=== PATIENT | female | born 1990 | race Caucasian/White ===

== ENCOUNTER 2021-11-30 10:05 | Outpatient (CLI) | payer OTHER, SELFPAY | END 2021-11-30 10:06 | disposition home or self-care (01) | PROVIDERS: Visit Provider Obstetrics & Gynecology | DX: Z34.90 Encounter for supervision of normal pregnancy, unspecified, unspecified trimester (principal); Z3A.00 Weeks of gestation of pregnancy not specified | CPT/HCPCS: 36415; 84702 ==

== ENCOUNTER 2021-12-06 15:25 | Outpatient (CLI) | payer OTHER, SELFPAY | END 2021-12-06 15:26 | disposition home or self-care (01) | LOC: ANHLAB 15:28 | PROVIDERS: Visit Provider Obstetrics & Gynecology | DX: O20.0 Threatened abortion (principal); Z3A.00 Weeks of gestation of pregnancy not specified | CPT/HCPCS: 36415; 84702 ==

== ENCOUNTER 2021-12-10 04:35 | Day surgery (SDC) | payer OTHER, SELFPAY ==
--- NOTE | 2021-12-09 16:27 | PC.NURSE ---
Report to the Outpatient Waiting Room, entrance under the green pavilion located off [facility], at time __1330 on date _12/10/21 . OR Time: ____1530____. - You and your visitor will be asked a series of questions to screen for COVID 19 for your protection. - A mask is required within the hospital. Preoperative COVID Testing Requirements: No COVID Test needed if: (proof is required; if not received patient will have Rapid Test prior to entry) - Patient has received COVID Vaccine at least 14 days prior to procedure date or - Patient has positive COVID test result within last 90 days of surgery date. COVID Test needed if above criteria is not met If not COVID vaccinated a COVID test must be conducted within 72 hours of surgery and patient is asked to isolate self from time of testing until procedure. You will go to the [facility] for your COVID testing. The [facility] site is located at the corner of [address] [facility]. You will only be called if COVID results are positive and your surgeon may reschedule your elective surgery date. Patients may have clear liquids (water, carbonated beverages, clear teas, apple juice) until 3 hours prior to surgery with a maximum of 20 ounces. - No food from midnight until time of surgery - Infants may have breast milk until 4 hours before surgery, infant formula 6 hours prior to surgery. - Children will be allowed to drink immediately following surgery. If applicable, please bring a bottle or sippy cup to assist with drinking. Juice, water, soda, and popsicles are readily available. For infants on formula, please bring formula the day of surgery. Pacifiers are allowed. Take the following medications with a SIP of water the morning of surgery: NONE Medications to discontinue per physician NONE Date to take last dose NONE Please no make-up, nail pakistani, hairspray, perfume, deodorant, or body powder the day of surgery. No jewelry (including any body piercings) or valuables the day of surgery, leave them at home. Please take a shower or bath the night before, or the morning of, surgery with an antibacterial soap. Wear comfortable, loose fitting clothing. Children are encouraged to wear pajamas. - Jewelry must be removed prior to entering the operating room. Rings and piercings that are not removed may be cut off. - The hospital will not accept responsibility for valuables. - Please leave all valuables, including medications, at home the day of surgery. If you are going home after surgery, a licensed emergency detail driver must drive you home. - NO public transportation without another adult. - We recommend that an adult stay with you for 24 hours following discharge. - We also recommend that you do not drive, make important decision, drink alcoholic beverages, or take any drugs that were not prescribed by your health care provider for at least 24 hours after your discharge time. For Pediatric surgeries, we recommend two adults accompany the child home (only one inside the building at this time). One visitor will be allowed to accompany the patient into the hospital. Patients visitor will be instructed to remain with patient at all times or leave the building. We will allow the visitor to come back to the postoperative area when patient is ready. Follow any additional instructions given to you from your surgeon. Telephone instructions given to _PATIENT and asked if any additional questions and then verbalized understanding. Patient advised to call surgeon office or pre surgery nurse liaison [phone] if any additional questions.
[2021-12-09 16:38] VITALS: BMI 35.4
--- NOTE | 2021-12-10 06:42 | WPDHPUPDATE1 ---
History and Physical Update Update Date/Time: 12/10/21 06:42 History and Physical has been reviewed, including an updated exam of the patient. There are NO changes in the patient's condition. Risks, benefits, and alternatives have been discussed and questions answered. Patient agrees to proceed with procedure.
--- NOTE | 2021-12-10 06:47 | PM.IMHP ---
H&P: HPI History of Present Illness Date/Time: 12/10/21 06:47 suspected cervical preg admitted for d and c Chief Complaint: first trimester abnormal Review of Systems Review of Systems: All systems reviewed & are unremarkable except as noted in HPI and below [facility] Social History Social History Years smoked: 5 Tobacco type: e-cigarettes/vaping Alcohol intake: current Drinks per week: 2 Substance use: never Living arrangements: with family Spiritual care concerns: No Meds Home Medications and Allergies Home Medications Medication Instructions Recorded Confirmed Type hydrocodone-acetaminophen 1 tablet PO Q4H PRN #20 tablet 12/10/21 Rx Allergies Allergy/AdvReac Type Severity Reaction Status Date / Time No Known Allergies Allergy Verified 12/09/21 16:20 Exam Const: General: no acute distress Eyes: General: appearance normal, both eyes and all related structures Neck: Neck: supple and no JVD Thyroid: thyroid normal Resp: Effort & Inspection: normal respiratory effort Auscultation: clear to auscultation bilaterally Cardio: Rate: regular rate Rhythm: regular rhythm GI: Inspection: non-distended GI Palp: Yes Soft to palpation, No Tenderness to palpation present (GI) and No Guarding due to palpation present (GI) Auscultation: normal bowel sounds : General: Yes bladder normal to palpation External Female Exam: normal external appearance Speculum Exam - Vagina: normal vaginal discharge and No vaginal bleeding Speculum Exam - Cervix: nontender Bimanual exam- vagina & uterus: bladder normal to palpation and No Cervical tenderness present OB/external & speculum: No vaginal bleeding Skin: General skin exam: no rashes or lesions noted Extrem: General: normal to inspection and no edema Psych: Mental Status: mental status grossly normal Affect: normal affect Assessment and Plan Additional Plan impression: abnormal plan:d and c
[2021-12-10 13:48] VITALS: BMI 35.4
--- NOTE | 2021-12-10 14:07 | P.PNAN_ITS ---
Anes - Eval Pre Procedure Procedure: Operation Date: 12/10/21 15:30 Proposed Procedures p Suction Dilation and Curettage - Rodo Howard MD Date/Time: 12/10/21 14:07 Pre Op Diagnosis: cervical Patient Data Age: 31 Gender: F Height: 1.75 m Weight: 108.9 kg Allergies Allergy/AdvReac Type Severity Reaction Status Date / Time No Known Allergies Allergy Verified 12/10/21 13:47 Home Medications Medication Instructions Recorded Confirmed Type hydrocodone-acetaminophen 1 tablet PO Q4H PRN #20 tablet 12/10/21 Rx Patient hx anesthesia problems: none Family hx anesthesia problems: none Results Review: All pre-operative results and documents have been reviewed as part of the pre-operative evaluation. [facility] Past Medical History Medical History (Updated 12/10/21 @ 14:08 by Rodo Llanes MD) Anxiety Missed ab Obesity Social History Social History Years smoked: 5 Tobacco type: e-cigarettes/vaping Alcohol intake: current Drinks per week: 2 Substance use: never Living arrangements: with family Spiritual care concerns: No Exam Day of Procedure 12/10/21 14:07 Patient weight: obese
[2021-12-10] MEDS: ACETAMINOPHEN 500 MG TABLET 1000 MG PO (14:12)
[2021-12-10] MEDS: LACTATED RINGERS 1,000 ML 30 ML IV CONT (14:20)
[2021-12-10 14:32] LABS: Hematocrit 37.6 % (37.0-47.0); Hemoglobin 12.5 g/dL (12.0-15.0)
[2021-12-10 14:33] VITALS: BP 112/60; PULSE 83; RESP 16; TEMP 36.8; O2SAT 100
[2021-12-10] MEDS: METHOTREXATE SODIUM/PF 50 MG/2 ML VIAL 56 MG IM ×2 (15:15→15:20)
[2021-12-10 15:57] VITALS: BP 147/88; PULSE 88; RESP 16; O2SAT 98
--- NOTE | 2021-12-10 16:00 | P.OP_ITS ---
Procedure Note - Detailed Date of Procedure 12/10/21 Pre-op Diagnosis cervical Post-op Diagnosis Same Procedure Performed Suction dilatation and curettage Surgeon Rodo Howard MD Anesthesia MAC and Local Indications This is 31-year-old female with abnormally rising HCG levels and no evidence of adnexal no intrauterine . Ultrasound showed some tissue at the cervix which could be possibly associated with a cervical ectopic. Findings Uterus sounded to 9cm. Minimal amount of tissue was found in the uterus consistent with the ultrasound. Description of Procedure The patient was prepped and draped in the normal sterile fashion placed in the dorsal lithotomy position. Under excellent IV sedation weighted speculum placed in posterior fornix vagina. Anterior lip of the cervix grasped with a single- tooth tenaculum. 2.5cc of 1% xylocaine anesthesia placed at 2, 4, 8, 10:00 a.m. of the cervix. Uterus was retroverted and sounded to 9cm. Serial dilatation with fragmented dilators performed followed by passage of the 8. Suction curette. Very small amount of tissue and clot was removed consistent with the previous ultrasound. The instruments removed and all were accounted for. The patient did receive methotrexate in case this was a an ectopic in the adnexa or somewhere else in the abdomen. 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 The procedure was terminated blood loss was estimated at25cc all sponge, needle, instrument counts were correct. Estimated Blood Loss 25 Drains No Packing No Pathology Yes Complications No immediate complications Condition Stable Disposition PACU
[2021-12-10] MEDS: fentaNYL CITRATE INJ (*CRX) 100 MCG/2 ML VIAL 25 MCG IV PUSH (16:11)
[2021-12-10] MEDS: oxyCODONE HCL (*CRX) 5 MG TAB IR PO (16:11)
[2021-12-10 16:27] VITALS: BP 153/73; PULSE 72; RESP 16; O2SAT 100
[2021-12-10 16:45] VITALS: BP 139/71; PULSE 80; RESP 16; O2SAT 100
[2021-12-10] MEDS: RHO(D) IMMUNE GLOBULIN 300 MCG/2 ML SYRINGE IM (16:46)
== END 2021-12-10 17:15 | disposition home or self-care (01) ==
PROVIDERS: Visit Provider Obstetrics & Gynecology
PROC: (CPT 59820; principal; 2021-12-10 15:30)
DX: O00.80 Other ectopic pregnancy without intrauterine pregnancy (principal); F17.290 Nicotine dependence, other tobacco product, uncomplicated
CPT/HCPCS: 59820; 36415; 85014; 85018; 85461; 88305; 90384; A9270; J1100; J1885; J2250; J2405; J2704; J2790; J3010; J7120; J9260

== ENCOUNTER 2022-01-21 15:08 | Outpatient (RCR) | payer OTHER, SELFPAY ==
[2021-12-23 16:19] LABS: Beta HCG Quantitative 408.05 mIU/ML
[2022-01-03 15:33] LABS: Beta HCG Quantitative 42.62 mIU/ML
[2022-01-12 16:23] LABS: Beta HCG Quantitative 8.12 mIU/ML
[2022-01-21 16:17] LABS: Beta HCG Quantitative < 2.39 mIU/ML
== END 2022-03-13 23:59 | disposition home or self-care (01) ==
LOC: ANHLAB 15:08
PROVIDERS: Visit Provider Obstetrics & Gynecology
DX: O02.1 Missed abortion (principal); Z3A.00 Weeks of gestation of pregnancy not specified
CPT/HCPCS: 36415; 84702

== ENCOUNTER 2022-05-11 16:05 | Outpatient (CLI) | payer OTHER, SELFPAY ==
[2022-05-11 16:20] LABS: Hematocrit 39.1 % (37.0-47.0); Hemoglobin 12.9 g/dL (12.0-15.0)
== END 2022-05-11 16:06 | disposition home or self-care (01) ==
LOC: ANHLAB 16:08
PROVIDERS: Visit Provider Obstetrics & Gynecology
DX: E04.9 Nontoxic goiter, unspecified (principal)
CPT/HCPCS: 36415; 84443; 85014; 85018

== ENCOUNTER 2022-05-16 11:08 | Outpatient (CLI) | payer OTHER, SELFPAY ==
--- NOTE | ~2022-05-16 | XR_ITS ---
EXAMINATION: XR hysterosalpingogram DATE: 05/16/2022 12:17 INDICATION: Infertility. Prior ectopic . TECHNIQUE: Multiple fluoroscopic images were obtained during contrast infusion into the endometrial c anal of the uterus by the primary physician. Fluoroscopy exposure time was 0.3 minutes. 2 fluoroscopi c images were obtained. FINDINGS: The uterine cavity demonstrates normal morphology. The left fallopian tube is normal in caliber and patent with free intraperitoneal spillage on the right. There is abrupt cut off of contrast within t he left fallopian tube which minimally dilates at the site of obstruction with no left-sided intraper itoneal spillage. IMPRESSION: 1. Patent right and occluded left fallopian tubes. Reviewed, dictated and finalized at location A.
== END 2022-05-16 11:09 | disposition home or self-care (01) ==
PROVIDERS: Visit Provider Obstetrics & Gynecology
DX: N97.9 Female infertility, unspecified (principal)
CPT/HCPCS: 58340; 74740; Q9966

== ENCOUNTER 2022-06-10 14:32 | Outpatient (CLI) | payer OTHER, SELFPAY ==
[2022-06-10 15:15] LABS: Beta HCG Quantitative 220.86 mIU/ML
[2022-06-13 16:23] LABS: Progesterone 16.9 ng/mL (***)
== END 2022-06-10 14:33 | disposition home or self-care (01) ==
PROVIDERS: Visit Provider Obstetrics & Gynecology
DX: Z34.80 Encounter for supervision of other normal pregnancy, unspecified trimester (principal); Z3A.00 Weeks of gestation of pregnancy not specified
CPT/HCPCS: 36415; 84144; 84702

== ENCOUNTER 2022-06-13 13:11 | Outpatient (CLI) | payer OTHER, SELFPAY ==
[2022-06-13 13:53] LABS: Beta HCG Quantitative 758.79 mIU/ML
== END 2022-06-13 13:12 | disposition home or self-care (01) ==
PROVIDERS: Visit Provider Obstetrics & Gynecology
DX: O09.11 Supervision of pregnancy with history of ectopic pregnancy, first trimester (principal); Z3A.00 Weeks of gestation of pregnancy not specified
CPT/HCPCS: 36415; 84702

== ENCOUNTER 2023-02-07 15:52 | Outpatient (CLI) | payer OTHER, SELFPAY ==
[2023-02-07 16:37] VITALS: BP 150/85; PULSE 77
[2023-02-07 16:45] VITALS: BP 141/88; PULSE 79
[2023-02-07 16:45] LABS: Basophils Percent Auto 0.3 % (0.2-1.2); Eosinophils Absolute Auto 0.1 K/mm3 (0-0.3); Eosinophils Percent Auto 0.7 % (0-4.4); Hematocrit 34.6 % (37.0-47.0); Hemoglobin 11.8 g/dL (12.0-15.0); Immature Granulocyte Absolute 0.12 K/mm3 (0.00-0.031); Immature Granulocyte Percent A 0.9 % (0-0.5); Lymphocytes Absolute Auto 2.15 K/mm3 (0.9-3.2); Lymphocytes Percent Auto 16.9 % (18.3-44.2); Mean Corpuscular HGB Conc 34.1 g/dl (32-36); Mean Corpuscular Hemoglobin 30.5 pg (26-34); Mean Corpuscular Volume 89.4 fl (80-100); Mean Platelet Volume 10.9 fl (7.4-10.4); Monocytes Absolute Auto 0.6 K/mm3 (0.1-0.6); Monocytes Percent Auto 4.5 % (2.6-8.5); Neutrophils Absolute Auto 9.8 K/mm3 (1.3-6.7); Neutrophils Percent Auto 76.7 % (45.5-73.1); Platelet Count Result 340 k/mm3 (150-375); Red Blood Count 3.87 M/mm3 (4.2-5.4); Red Cell Distribution Width 13.1 % (11.5-14.5); White Blood Count 12.8 K/mm3 (4.5-10.0)
[2023-02-07 16:56] LABS: Alanine Aminotransferase 25 U/L (6-35); Albumin Level 3.5 g/dL (3.5-5.1); Alkaline Phosphatase 145 U/L (38-126); Anion Gap 6 mmol/L (8-16); Aspartate Amino Transferase 20 U/L (14-36); Bilirubin,Total 0.2 mg/dL (0.2-1.3); Blood Urea Nitrogen 8 mg/dL (7-17); Calcium 8.6 mg/dL (8.4-10.2); Carbon Dioxide 23 mmol/L (22-30); Chloride 105 mmol/L (98-107); Estimated Glomerular Filt Rate > 60; Glucose 85 mg/dL (65-110); Potassium 3.7 mmol/L (3.4-5.0); Sodium 134 mmol/L (137-145); Total Protein Urine Random 8 mg/dL; Ur Ttl Prot Creatinine Ratio 0.18 mg/mg (0-0.20); Uric Acid 3.7 mg/dL (2.5-7.5)
[2023-02-07 17:00] VITALS: BP 144/83; PULSE 76
[2023-02-07 17:16] VITALS: BP 150/77; PULSE 82
[2023-02-07 17:23] LABS: Appearance Urine Clear (Clear); Bacteria Urine None Seen /hpf; Bilirubin Urine Negative (Negative); Blood Urine Negative (Negative); Color Urine Yellow (Yellow); Glucose Urine UA Negative (Negative); Ketones Urine Negative (Negative); Leukocyte Esterase Ur 1+ LEU/UL (NEGATIVE); Need Manual Microscopic Reviewed; Nitrate Urine Negative (Negative); Non Pathogenic Casts 0-2; Protein Urine Negative (Negative); RBC Urine 0-2 /hpf (0-2); Specific Grav Ur 1.009 (1.001-1.035); Squamous Epithelial Cell Urine Occasional /hpf (Few); Urobilinogen Urine 0.2 mg/dL (<2.0); WBC Urine 0-5 /hpf (0-3); pH Urine 6.5 (5.0-9.0)
[2023-02-07 17:31] LABS: Add Urine Microscopic? YES
== END 2023-02-07 17:30 | disposition home or self-care (01) ==
LOC: ANHOBOP 16:01 → ANHOBPP 16:04
PROVIDERS: Visit Provider Obstetrics & Gynecology
DX: O13.9 Gestational [pregnancy-induced] hypertension without significant proteinuria, unspecified trimester (principal); Z3A.00 Weeks of gestation of pregnancy not specified
CPT/HCPCS: 36415; 59025; 80053; 81001; 82570; 84156; 84550; 85025; 87086; 99199

== ENCOUNTER 2023-02-14 05:04 | Inpatient (IN) | payer OTHER, SELFPAY ==
[2023-02-14] VITALS (165 sets, daily range): BP systolic 76–162; BP diastolic 31–101; PULSE 61–163; RESP 12–18; TEMP 36.3–37.3; O2SAT 80–100; BMI 37.3
--- NOTE | 2023-02-14 05:44 | LDADM ---
This patient, Erika Toure, was admitted to Labor/Delivery/Recovery 103 on 02/14/23 at 05:04. Plans for labor, pain management and were discussed with patient. Patient/family oriented to hospital policies and general routines including ID bracelet, bed and alarms, visiting hours, pain management, procedures, bathroom and other care routines, personal items, smoking policy, room service/diet and guest tray routines, security routines, and visiting hours. Patient/Family are encouraged to report perceived risks to care and to ask questions if they do not understand what they are told or what they should do. See OBIX for further documentation.
--- NOTE | 2023-02-14 06:07 | PM.IMHP ---
H&P: HPI History of Present Illness Date/Time: 02/14/23 06:07 Chief Complaint: hypertension at term Narrative: this is a 32-year-old 2 para 0 40 weeks gestation for induction of labor secondary to elevated blood pressures. Blood pressures been elevated the last couple visits. She she has otherwise had an unremarkable course was normal heart tones and negative group B strep PMFSH Past Medical History Medical History Anxiety Missed ab Obesity Social History Social History Years smoked: 5 Smoking status: Former smoker Tobacco type: e-cigarettes/vaping Alcohol intake: current Drinks per week: 2 Substance use: never Lack of Transportation: No Lack of Food: Never True Current Housing: I Have Housing Concerned About Future Housing: No Difficulty Paying Gas/Electric Bills: No Difficulty Paying for Meds: No Currently Unemployed: No Education: Master's Degree or Higher Difficulty w/ Childcare or Family Care: No Living arrangements: with family Spiritual care concerns: No Meds Home Medications and Allergies Home Medications Medication Instructions Recorded Confirmed Type cholecalciferol (vitamin D3) 125 125 mcg PO DAILY 01/17/23 History mcg (5,000 unit) tablet (Vitamin D3) magnesium 250 mg tablet 250 mg PO DAILY 01/17/23 History vit no.95-ferrous 1 tablet PO DAILY 01/17/23 History fumarate 28 mg-folic acid 800 mcg tablet () Allergies Allergy/AdvReac Type Severity Reaction Status Date / Time No Known Allergies Allergy Verified 12/10/21 13:47 Vital Signs Vital Signs - 24 hr 02/14/23 05:24 02/14/23 05:30 02/14/23 05:45 Pulse Rate 95 88 85 Blood Pressure 162/95 H 162/90 H 147/85 H Oxygen Delivery 02/14/23 06:00 02/14/23 05:43 Pulse Rate 81 Blood Pressure 138/85 Oxygen Delivery Room Air Exam Const: General: cooperative, healthy appearing and comfortable Nutritional Appearance: average body habitus Orientation/consciousness: oriented to person, oriented to place and oriented to time HENMT: Head: normal to inspection Resp: Effort & Inspection: normal respiratory effort Cardio: Rate: regular rate Rhythm: regular rhythm Heart sounds: S1 normal heart sound present and S2 normal heart sound present GI: Inspection: normal to inspection ( gravid soft uterus) : External Female Exam: normal external appearance Speculum Exam - Vagina: normal appearance of the vagina Speculum Exam - Cervix: normal appearance of the cervix ( cervix . Attempted arom. FHTs were reassuring) Assessment and Plan Assessment and plan (1) Term : Code(s): Z34.90 - Encounter for supervision of normal , unspecified, unspecified trimester Status: Acute (2) Gestational hypertension: Code(s): O13.9 - Gestational [-induced] hypertension without significant proteinuria, unspecified trimester Status: Acute Plan medical induction of labor. Spontaneous vaginal delivery expected. She is an epidural candidate. PIH labs were drawn
[2023-02-14 06:09] LABS: Basophils Absolute Auto 0.1 K/mm3 (0.0-0.1); Basophils Percent Auto 0.3 % (0.2-1.2); Eosinophils Absolute Auto 0.1 K/mm3 (0-0.3); Eosinophils Percent Auto 0.7 % (0-4.4); Hemoglobin 12.1 g/dL (12.0-15.0); Immature Granulocyte Percent A 0.7 % (0-0.5); Lymphocytes Percent Auto 15.9 % (18.3-44.2); Mean Corpuscular HGB Conc 33.6 g/dl (32-36); Mean Corpuscular Hemoglobin 29.4 pg (26-34); Mean Corpuscular Volume 87.6 fl (80-100); Mean Platelet Volume 11.4 fl (7.4-10.4); Monocytes Absolute Auto 0.7 K/mm3 (0.1-0.6); Monocytes Percent Auto 4.6 % (2.6-8.5); Neutrophils Absolute Auto 11.7 K/mm3 (1.3-6.7); Neutrophils Percent Auto 77.8 % (45.5-73.1); Platelet Count Result 361 k/mm3 (150-375); Red Blood Count 4.11 M/mm3 (4.2-5.4); Red Cell Distribution Width 12.8 % (11.5-14.5); White Blood Count 15.1 K/mm3 (4.5-10.0)
[2023-02-14 06:17] LABS: Alanine Aminotransferase 25 U/L (6-35); Albumin Level 3.7 g/dL (3.5-5.1); Alkaline Phosphatase 157 U/L (38-126); Anion Gap 8 mmol/L (8-16); Aspartate Amino Transferase 27 U/L (14-36); Bilirubin,Total 0.2 mg/dL (0.2-1.3); Blood Urea Nitrogen 10 mg/dL (7-17); Calcium 8.6 mg/dL (8.4-10.2); Carbon Dioxide 22 mmol/L (22-30); Chloride 104 mmol/L (98-107); Estimated CRCL calculation 190 ml/min; Estimated Glomerular Filt Rate > 60; Glucose 90 mg/dL (65-110); Potassium 4.1 mmol/L (3.4-5.0); Sodium 134 mmol/L (137-145)
[2023-02-14] MEDS: OXYTOCIN 30 UNITS/NS 500 ML 30 UNITS/500 ML BAG 6 UNITS IV CONT (06:37)
[2023-02-14] MEDS: LACTATED RINGERS 1,000 ML 125 ML IV CONT ×2 (06:37→12:59)
[2023-02-14] MEDS: fentaNYL CITRATE INJ (*CRX) 100 MCG/2 ML VIAL 50 MCG IV PUSH (09:20)
[2023-02-14 09:24] LABS: Rapid Plasma Reagin Non-Reactive (NonReactive)
[2023-02-14] MEDS: PHENYLEPHRINE 1,000 MCG/10 ML SYRINGE 100 MCG IV PUSH (09:37)
--- NOTE | 2023-02-14 09:44 | WPDANESEPP ---
Anes - Eval Pre Procedure Procedure: Labor Epidural Date/Time: 02/14/23 09:44 Surgeon: Marizol Jones Preop Diagnosis: Labor Pain Pre Op Diagnosis: iol Patient Data Age: 32 Gender: F Height: 1.78 m Weight: 118 kg Last Vital Signs Pulse 87 02/14/23 09:43 BP 135/63 02/14/23 09:43 Pulse Ox 100 02/14/23 09:43 O2 Del Method Room Air 02/14/23 05:43 Allergies Allergy/AdvReac Type Severity Reaction Status Date / Time No Known Allergies Allergy Verified 12/10/21 13:47 Home Medications Medication Instructions Recorded Confirmed Type cholecalciferol (vitamin D3) 125 125 mcg PO DAILY 01/17/23 History mcg (5,000 unit) tablet (Vitamin D3) magnesium 250 mg tablet 250 mg PO DAILY 01/17/23 History vit no.95-ferrous 1 tablet PO DAILY 01/17/23 History fumarate 28 mg-folic acid 800 mcg tablet () Laboratory Tests 02/14/23 02/14/23 05:38 05:40 WBC 15.1 H K/mm3 (4.5-10.0) RBC 4.11 L M/mm3 (4.2-5.4) Hgb 12.1 g/dL (12.0-15.0) Hct 36.0 L % (37.0-47.0) MCV 87.6 fl (80-100) MCH 29.4 pg (26-34) MCHC 33.6 g/dl (32-36) RDW 12.8 % (11.5-14.5) Plt Count 361 k/mm3 (150-375) MPV 11.4 H fl (7.4-10.4) Immature Gran % (Auto) 0.7 H % (0-0.5) Neut % (Auto) 77.8 H % (45.5-73.1) Lymph % (Auto) 15.9 L % (18.3-44.2) [place] % (Auto) 4.6 % (2.6-8.5) Eos % (Auto) 0.7 % (0-4.4) Baso % (Auto) 0.3 % (0.2-1.2) Lymph # (Auto) 2.40 K/mm3 (0.9-3.2) [place] # (Auto) 0.7 H K/mm3 (0.1-0.6) Eos # (Auto) 0.1 K/mm3 (0-0.3) Baso # (Auto) 0.1 K/mm3 (0.0-0.1) Abs Immat Gran (auto) 0.10 H K/mm3 (0.00-0.031) Absolute Neuts (auto) 11.7 H K/mm3 (1.3-6.7) Absolute Nucleated RBC 0.0 K/mm3 (0.0-0.012) Nucleated RBC % 0.0 % (0.0-0.2) Sodium 134 L mmol/L (137-145) Potassium 4.1 mmol/L (3.4-5.0) Chloride 104 mmol/L (98-107) Carbon Dioxide 22 mmol/L (22-30) Anion Gap 8 mmol/L (8-16) BUN 10 mg/dL (7-17) Creatinine 0.50 L mg/dL (0.7-1.0) Estim Creat Clear Calc 190 ml/min Estimated GFR > 60 (59 - ) Glucose 90 mg/dL (65-110) Calcium 8.6 mg/dL (8.4-10.2) Total Bilirubin 0.2 mg/dL (0.2-1.3) AST 27 U/L (14-36) ALT 25 U/L (6-35) Alkaline Phosphatase 157 H U/L (38-126) Total Protein 7.0 g/dL (6.3-8.2) Albumin 3.7 g/dL (3.5-5.1) RPR Non-reactive (NonReactive) Blood Type A Negative Antibody Screen Negative : gestational age (MEGAN 02/14/23 ) Patient hx anesthesia problems: none Family hx anesthesia problems: none Results Review: All pre-operative results and documents have been reviewed as part of the pre-operative evaluation. [facility] Past Medical History Medical History (Updated 02/14/23 @ 09:45 by Veronika Greenberg CRNA) Anxiety Gestational hypertension Missed ab Obesity Social History Social History Years smoked: 5 Smoking status: Former smoker Tobacco type: e-cigarettes/vaping Alcohol intake: current Drinks per week: 2 Substance use: never Lack of Transportation: No Lack of Food: Never True Current Housing: I Have Housing Concerned About Future Housing: No Difficulty Paying Gas/Electric Bills: No Difficulty Paying for Meds: No Currently Unemployed: No Education: Master's Degree or Higher Difficulty w/ Childcare or Family Care: No Living arrangements: with family Spiritual care concerns: No Exam Day of Procedure 02/14/23 09:44 Patient weight: obese Heart: regular rate and rhythm Lungs: normal air movement Airway: Mallampati scale class II Neurological: alert and oriented
[2023-02-14] MEDS: ONDANSETRON INJ 4 MG/2 ML VIAL IV PUSH (10:48)
--- NOTE | 2023-02-14 11:03 | PM.OBPNLAB ---
Pain Control Date/time seen: 02/14/23 11:03 Pain control: tolerating well and epidural Pelvic Exam Dilation (cm): 3 Effacement (%): 90 station: -1 Amniotic membrane status: Leaking Comments: variables. reactive scalp stim. consider amnioinfusion
[2023-02-14] MEDS: DEXTROSE 5%/LACTATED RINGERS 1,000 ML 999 ML IV CONT (11:13)
[2023-02-14] MEDS: SODIUM CHLORIDE 0.9% IV 300 ML 600 ML I-UTERINE (14:33)
--- NOTE | 2023-02-14 16:05 | W.PM.PROC2 ---
Procedure Note - Detailed Date of Procedure 02/14/23 Pre-op Diagnosis iolFetal intolerance to labor Post-op Diagnosis Same Procedure Performed primary low-transverse section Surgeon Rodo Jones MD Anesthesia Epidural Indications this is a 32-year-old female at term 40 weeks with mild gestational hypertension for induction of labor she progressed to about 4-5 cm and had repetitive late decelerations. She recovered when Pitocin was off however with restart the baby did not tolerate well and decision was made for section. Findings Male 7lb 10oz Apgars 8915minutes respectively nuchal cord was noted as well as ankle and wrist cord as well. Description of Procedure Patient was prepped draped in normal sterile fashion placed in the supine position. Under excellent epidural anesthesia the opposite infant's fashion risks layers to fascia. Fascia incised midline cure number not fashion bilaterally. Underlying muscles sharply dissected. Parietal peritoneum 0 by Yudith clamps and by sharp dissection carried superiorly and inferiorly dome of the bladder. Bladder blade placed bladder flap formed. Bladder blade returned a low-transverse incision made the head delivered the SHRADDHA position. Anterior posterior shoulder delivered spontaneously after relieving the cord around the occiput. The cord was noted be wrapped around the wrist and the ankle and this was relieved clamped x2 and cut infant passed off the table given Apgars of 8 [id number]. Cord blood was drawn +placenta delivered intact manually. Uterus delivered on the abdomen wrapped in a moist towel. After assuring no membranes were remaining the uterus, the uterus closed continuous running locking 0 Vicryl from lateral edge to lateral edge. This followed by 2nd imbricating running locking Vicryl from lateral edge to lateral edge. Hemostasis was assured. The ovaries and tubes appeared within normal limits and uterus returned the abdomen. The laps removed and accounted for. The incision on the uterus and vacuum 1 last time and noted be hemostatic. The fascia was closed with continuous running 0 Vicryl from lateral edge to midline bilaterally. Irrigation subcutaneous layer and the skin closed with 4 Monocryl glue. EBL was 475. All sponge, needle, instrument counts correct. Mom baby doing fine at the time of dictation Estimated Blood Loss 475 Drains No Packing No Pathology None sent Complications No immediate complications Condition Stable Disposition PACU
--- NOTE | 2023-02-14 18:26 | OBPPTRN ---
Patient transferred to post room #286 via stretcher. Support person present. Oriented to unit, room, information board, rooming in, admission packet and security measures. Patient verbalizes understanding. Infant with patient.
[2023-02-14] MEDS: HYDROcodone/acetaminophen (*CRX) 5-325 MG TABLET 1 TAB (19:26)
[2023-02-14] MEDS: KETOROLAC 30 MG/ML VIAL (*BKC) (19:26)
[2023-02-14] MEDS: DEXTROSE 5%/0.45% SOD CHL 1,000 ML 125 ML IV CONT (19:30)
[2023-02-14] MEDS: HYDROcodone/acetaminophen (*CRX) 5-325 MG TABLET 1 TAB PO (22:45)
[2023-02-14] MEDS: diphenhydrAMINE HCl INJ 50 MG/ML VIAL 25 MG IV PUSH (22:45)
[2023-02-15] MEDS: diphenhydrAMINE HCl INJ 50 MG/ML VIAL 25 MG IV PUSH (02:35)
[2023-02-15] MEDS: IBUPROFEN 600 MG TABLET PO ×3 (02:36→16:21)
[2023-02-15] MEDS: HYDROcodone/acetaminophen (*CRX) 10-325 MG TABLET 1 TAB PO ×5 (02:40→21:03)
[2023-02-15 02:50] VITALS: BP 125/73; PULSE 73; RESP 16; TEMP 37.1; O2SAT 100
[2023-02-15 04:02] LABS: Basophils Absolute Auto 0.1 K/mm3 (0.0-0.1); Basophils Percent Auto 0.2 % (0.2-1.2); Hematocrit 32.2 % (37.0-47.0); Hemoglobin 10.9 g/dL (12.0-15.0); Immature Granulocyte Absolute 0.15 K/mm3 (0.00-0.031); Immature Granulocyte Percent A 0.7 % (0-0.5); Lymphocytes Absolute Auto 2.14 K/mm3 (0.9-3.2); Lymphocytes Percent Auto 10.2 % (18.3-44.2); Mean Corpuscular HGB Conc 33.9 g/dl (32-36); Mean Corpuscular Hemoglobin 30.4 pg (26-34); Mean Corpuscular Volume 89.7 fl (80-100); Mean Platelet Volume 11.7 fl (7.4-10.4); Monocytes Absolute Auto 0.8 K/mm3 (0.1-0.6); Monocytes Percent Auto 3.6 % (2.6-8.5); Neutrophils Absolute Auto 17.9 K/mm3 (1.3-6.7); Neutrophils Percent Auto 85.3 % (45.5-73.1); Platelet Count Result 306 k/mm3 (150-375); Red Blood Count 3.59 M/mm3 (4.2-5.4); Red Cell Distribution Width 12.9 % (11.5-14.5)
--- NOTE | 2023-02-15 06:24 | PM.DS ---
DS: Admitting Diagnosis Discharge Date 02/16/2023 Admitting Diagnosis term /gestational hypertension DS: Discharge Diagnosis Discharge Diagnosis (1) Term : Code(s): Z34.90 - Encounter for supervision of normal , unspecified, unspecified trimester Status: Acute DS: Summary Hospital Course Reason for hospitalization: patient was admitted for induction of labor at term secondary to elevated blood pressures Hospital Course: the patient underwent low-transverse section for intolerance to labor. Her hospital course was unremarkable. She remained afebrile. She was up, voiding without difficulty, ambulating, eating regular diet, generally without complaints. Time Spent with Patient Time attestation: Total time spent providing and/or coordinating discharge services: Exam Const: General: cooperative, healthy appearing and comfortable Nutritional Appearance: average body habitus Orientation/consciousness: oriented to person, oriented to place and oriented to time HENMT: Head: normal to inspection Resp: Effort & Inspection: normal respiratory effort Cardio: Rate: regular rate Rhythm: regular rhythm Heart sounds: S1 normal heart sound present and S2 normal heart sound present GI: Inspection: normal to inspection and incision ( Wound clean dry and intact) DS: Data Data Completed and Pending Labs on day of discharge: Labs from last 24 hours 02/15/23 02/14/23 03:05 05:38 WBC 21.0 H RBC 3.59 L Hgb 10.9 L Hct 32.2 L MCV 89.7 MCH 30.4 MCHC 33.9 RDW 12.9 Plt Count 306 MPV 11.7 H Immature Gran % (Auto) 0.7 H Neut % (Auto) 85.3 H Lymph % (Auto) 10.2 L [place] % (Auto) 3.6 Eos % (Auto) 0.0 Baso % (Auto) 0.2 Lymph # (Auto) 2.14 [place] # (Auto) 0.8 H Eos # (Auto) 0.0 Baso # (Auto) 0.1 Abs Immat Gran (auto) 0.15 H Absolute Neuts (auto) 17.9 H Absolute Nucleated RBC 0.0 Nucleated RBC % 0.0 RPR Non-reactive Blood Type A Negative Antibody Screen Negative Discharge Plan Discharge Attending physician on discharge: Rodo Deng Discharging Clinician: Rodo Deng Patient Disposition: Home, Self-Care Activity: may shower and pelvic rest Diet: heart healthy Wound Care Instructions: follow printed instructions Patient Instructions: Antibiotic Form Stand Alone Forms: General Discharge Information Follow-up/Referrals: Rodo Deng MD [Physician] - Discharge Medications: New hydrocodone-acetaminophen 5-325 mg tablet 1 tablet PO Q4H PRN (Reason: pain) Qty: 20 0RF Continued PNV cmb#95-ferrous fumarate-FA [] 28 mg iron- 800 mcg Tablet 1 tablet PO DAILY cholecalciferol (vitamin D3) [Vitamin D3] 125 mcg (5,000 unit) Tablet 125 mcg PO DAILY magnesium 250 mg Tablet 250 mg PO DAILY Date of admission: 02/14/23 05:04 Primary Care Provider: PHYSICIAN,[employer] DEVELOPMENT MANAGER Admitting Provider: Rodo Deng Attending physician on admission: Rodo Deng Condition: Stable
--- NOTE | 2023-02-15 06:26 | PM.OBPNVD ---
OB - PN: Subj Subjective Date/time seen: 02/15/23 06:26 Patient comments: no complaints and pain well controlled baby status: doing well and nursing well OB - PN: Obj Data Labs 02/15/23 03:05 02/14/23 05:40 Labs: Laboratory Results - last 24 hr 02/14/23 02/15/23 05:38 03:05 WBC 21.0 H RBC 3.59 L Hgb 10.9 L Hct 32.2 L MCV 89.7 MCH 30.4 MCHC 33.9 RDW 12.9 Plt Count 306 MPV 11.7 H Immature Gran % (Auto) 0.7 H Neut % (Auto) 85.3 H Lymph % (Auto) 10.2 L [place] % (Auto) 3.6 Eos % (Auto) 0.0 Baso % (Auto) 0.2 Lymph # (Auto) 2.14 [place] # (Auto) 0.8 H Eos # (Auto) 0.0 Baso # (Auto) 0.1 Abs Immat Gran (auto) 0.15 H Absolute Neuts (auto) 17.9 H Absolute Nucleated RBC 0.0 Nucleated RBC % 0.0 RPR Non-reactive Blood Type A Negative Antibody Screen Negative OB - PN A/P Plan day: 1 Plan: routine care Time Spent With Patient Time: Total time spent is greater than 50% in coordination of care (as documented) at patient's floor/unit and/or counseling patient: Time with patient: less than 15 minutes Exam Const: General: cooperative, healthy appearing and comfortable Nutritional Appearance: average body habitus Orientation/consciousness: oriented to person, oriented to place and oriented to time HENMT: Head: normal to inspection Resp: Effort & Inspection: normal respiratory effort Cardio: Rate: regular rate Rhythm: regular rhythm Heart sounds: S1 normal heart sound present and S2 normal heart sound present GI: Inspection: normal to inspection and incision ( clean and dry)
[2023-02-15 08:25] VITALS: BP 136/61; PULSE 81; RESP 16; TEMP 37.1; O2SAT 100
[2023-02-15] MEDS: DOCUSATE SODIUM 100 MG CAPSULE PO ×2 (09:00→16:21)
[2023-02-15] MEDS: MULTIVIT/MIN/PREN/FOL AC/IRON TABLET 1 TAB PO (09:00)
[2023-02-15 13:00] VITALS: BP 125/60; PULSE 75; RESP 18; TEMP 36.6; O2SAT 100
--- NOTE | 2023-02-15 16:03 | WPDANLDNPN2 ---
Anes-Prog Note L&D-Neuraxial Date/Time: 02/15/23 16:03 Neuraxial medications: epidural PF morphine Opiod-related complaints: none Patient feedback: Patient satisfied with post-operative pain management.
--- NOTE | 2023-02-15 16:03 | WPDANLDPN2 ---
Anes-Prog Note L&D Date/Time: 02/15/23 16:03 Comfortable throughout: section Neuraxial method: epidural Epidural/Spinal procedure site: clean & non-tender Neuro status: Neuro function grossly intact. Cardiovascular status: normal Respiratory status: normal Airway patency: baseline Mental status: baseline Post-Op hydration status: normal Vital Signs: Last Vital Signs Temp 36.6 C 02/15/23 13:00 Pulse 75 02/15/23 13:00 Resp 18 02/15/23 13:00 BP 125/60 02/15/23 13:00 Pulse Ox 100 02/15/23 13:00 O2 Del Method Room Air 02/15/23 09:00 Pain score (VAS): 2/10 I/O: Intake & Output 02/15/23 02/15/23 02/15/23 07:59 15:59 23:59 Intake Total 1900 Output Total 800 1000 Balance 1100 -1000 Post-procedural complaints: none Patient feedback: Patient satisfied with anesthetic care.
[2023-02-15 16:21] VITALS: BP 135/65; PULSE 81; RESP 18; TEMP 36.6; O2SAT 99
[2023-02-15 20:55] VITALS: BP 142/66; PULSE 86; RESP 20; TEMP 36.4; O2SAT 99
[2023-02-16 00:35] VITALS: BP 114/65
[2023-02-16] MEDS: HYDROcodone/acetaminophen (*CRX) 10-325 MG TABLET 1 TAB PO (02:14)
[2023-02-16] MEDS: IBUPROFEN 600 MG TABLET PO ×2 (02:14→08:46)
[2023-02-16] MEDS: HYDROcodone/acetaminophen (*CRX) 5-325 MG TABLET 1 TAB PO ×4 (05:16→14:01)
[2023-02-16 05:42] VITALS: BP 121/61
--- NOTE | 2023-02-16 07:03 | PM.OBPNVD ---
OB - PN: Subj Subjective Date/time seen: 02/16/23 07:03 Patient comments: no complaints and pain well controlled baby status: doing well and nursing well OB - PN: Obj Data Labs 02/15/23 03:05 02/14/23 05:40 OB - PN A/P Plan day: 2 Plan: routine care, discharge home and follow up 6 weeks (4) Time Spent With Patient Time: Total time spent is greater than 50% in coordination of care (as documented) at patient's floor/unit and/or counseling patient: Time with patient: less than 15 minutes Exam Const: General: cooperative, healthy appearing and comfortable Nutritional Appearance: average body habitus Orientation/consciousness: oriented to person, oriented to place and oriented to time HENMT: Head: normal to inspection Resp: Effort & Inspection: normal respiratory effort Cardio: Rate: regular rate Rhythm: regular rhythm Heart sounds: S1 normal heart sound present and S2 normal heart sound present GI: Inspection: normal to inspection and incision (cdi)
[2023-02-16] MEDS: MULTIVIT/MIN/PREN/FOL AC/IRON TABLET 1 TAB PO (08:45)
[2023-02-16] MEDS: DOCUSATE SODIUM 100 MG CAPSULE PO (08:45)
[2023-02-16] MEDS: LANOLIN (LANSINOH) 7.5 GM CREAM 1 APPLIC TOPICAL (08:47)
[2023-02-16 08:50] VITALS: BP 140/75; PULSE 81; RESP 16; TEMP 37.1; O2SAT 99
== END 2023-02-16 14:50 | disposition home or self-care (01) | DRG 788 ==
LOC: ANHLDR 05:06 → ANHOB2 19:53
PROVIDERS: Admitting Provider Obstetrics & Gynecology; Visit Provider Obstetrics & Gynecology
PROC: 10D00Z1 Extraction of Products of Conception, Low, Open Approach (ICD-10-PCS; CPT 59514; principal; 2023-02-14 15:15)
DX: O13.4 Gestational [pregnancy-induced] hypertension without significant proteinuria, complicating childbirth (principal); Z37.0 Single live birth; Z3A.40 40 weeks gestation of pregnancy; O69.82X0 Labor and delivery complicated by other cord entanglement, without compression, not applicable or unspecified; O36.8330 Maternal care for abnormalities of the fetal heart rate or rhythm, third trimester, not applicable or unspecified
CPT/HCPCS: 36415; 80053; 85025; 86592; 86850; 86900; 86901; A9270; J0131; J1200; J1885; J2274; J2370; J2405; J2590; J2795; J3010; J7030; J7120; J7121

== ENCOUNTER 2023-08-24 09:16 | Emergency (ER) | payer OTHER, SELFPAY ==
--- NOTE | ~2023-08-24 | CT_ITS ---
Noncontrast CT scan of the cervical spine Technique: Multiple contiguous axial [address] images of the cervical spine were obtained and rec onstructed in 2D sagittal and coronal planes on the acquisition scanner. Dose reduction technique was used on this scan by utilizing automated exposure control, adjustment of the mA and/or kV according to patient size. The dose-length product (DLP) was 416.34 mGy-cm. Clinical History: Pain Findings: No fractures or dislocations. Unremarkable visualized bony structures. The intervertebral disc spaces are preserved. No prevertebral soft tissue swelling. Impression: No fracture or subluxation of the cervical spine. Reviewed, dictated and finalized at location . MECHANISM MAKER Impression: No fracture or subluxation of the cervical spine.
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
[2023-08-24 09:20] VITALS: BP 136/68; PULSE 90; RESP 16; TEMP 36.7; O2SAT 99
[2023-08-24] MEDS: LIDOCAINE 5% PATCH 1 PATCH TRANSDERM (11:34)
[2023-08-24] MEDS: KETOROLAC 30 MG/ML VIAL (*BKC) IM (11:35)
[2023-08-24] MEDS: ACETAMINOPHEN 325 MG TABLET 650 MG PO (11:35)
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
[2023-08-24] MEDS: diazePAM INJ (*CRX) 10 MG/2 ML SYRINGE 5 MG IM (12:16)
[2023-08-24 13:23] VITALS: BP 152/77; PULSE 78; RESP 20; O2SAT 98
== END 2023-08-24 14:20 | disposition home or self-care (01) ==
PROVIDERS: Emergency Provider Physician Assistant; PCP Physician Assistant
DX: S42.022A Displaced fracture of shaft of left clavicle, initial encounter for closed fracture (principal); Z87.891 Personal history of nicotine dependence; V43.52XA Car driver injured in collision with other type car in traffic accident, initial encounter
CPT/HCPCS: 70450; 71101; 72125; 96372; 99284; A9270; J1885; J3360

== ENCOUNTER 2023-08-28 11:33 | Outpatient (CLI) | payer OTHER, SELFPAY ==
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
== END 2023-08-28 11:34 | disposition home or self-care (01) ==
PROVIDERS: PCP Physician Assistant; Visit Provider Orthopaedic Surgery
DX: S42.022A Displaced fracture of shaft of left clavicle, initial encounter for closed fracture (principal); X58.XXXA Exposure to other specified factors, initial encounter
CPT/HCPCS: 73000

== ENCOUNTER 2023-09-11 13:25 | Outpatient (CLI) | payer OTHER, SELFPAY ==
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
== END 2023-09-11 13:26 | disposition home or self-care (01) ==
LOC: ANHBWCIMG 13:26
PROVIDERS: PCP Physician Assistant; Visit Provider Orthopaedic Surgery
DX: M89.8X1 Other specified disorders of bone, shoulder (principal); S42.022D Displaced fracture of shaft of left clavicle, subsequent encounter for fracture with routine healing; X58.XXXD Exposure to other specified factors, subsequent encounter
CPT/HCPCS: 73000

== ENCOUNTER 2024-06-04 08:29 | Outpatient (CLI) | payer OTHER, SELFPAY ==
[2024-06-04 09:34] LABS: Basophils Absolute Auto 0.1 K/mm3 (0.0-0.1); Basophils Percent Auto 0.6 % (0.2-1.2); Eosinophils Absolute Auto 0.2 K/mm3 (0-0.3); Eosinophils Percent Auto 2.5 % (0-4.4); Hematocrit 40.7 % (37.0-47.0); Hemoglobin 13.7 g/dL (12.0-15.0); Immature Granulocyte Absolute 0.04 K/mm3 (0.00-0.031); Immature Granulocyte Percent A 0.5 % (0-0.5); Lymphocytes Absolute Auto 1.71 K/mm3 (0.9-3.2); Mean Corpuscular HGB Conc 33.7 g/dl (32-36); Mean Corpuscular Hemoglobin 30.6 pg (26-34); Mean Corpuscular Volume 90.8 fl (80-100); Mean Platelet Volume 10.5 fl (7.4-10.4); Monocytes Absolute Auto 0.5 K/mm3 (0.1-0.6); Monocytes Percent Auto 5.9 % (2.6-8.5); Neutrophils Absolute Auto 5.7 K/mm3 (1.3-6.7); Neutrophils Percent Auto 69.5 % (45.5-73.1); Platelet Count Result 405 k/mm3 (150-375); Red Blood Count 4.48 M/mm3 (4.2-5.4); Red Cell Distribution Width 12.4 % (11.5-14.5); White Blood Count 8.1 K/mm3 (4.5-10.0)
[2024-06-04 10:06] LABS: Alanine Aminotransferase 17 U/L (6-35); Albumin Level 4.4 g/dL (3.5-5.1); Alkaline Phosphatase 80 U/L (38-126); Anion Gap 8 mmol/L (4-12); Aspartate Amino Transferase 20 U/L (14-36); Bilirubin,Total 0.3 mg/dL (0.2-1.3); Blood Urea Nitrogen 13 mg/dL (7-17); Carbon Dioxide 28 mmol/L (22-30); Chloride 102 mmol/L (98-107); Cholesterol 158 mg/dL (0-200); Estimated Glomerular Filt Rate > 60; Glucose 100 mg/dL (65-110); HDL Direct 42 mg/dL; Potassium 4.1 mmol/L (3.4-5.0); Sodium 138 mmol/L (137-145); Triglycerides 102 mg/dL (<150)
[2024-06-04 10:17] LABS: LDL Cholesterol Direct 90 mg/dL
[2024-06-04 10:32] LABS: Thyroid Stimulating Hormone 0.814 uIU/mL (0.465-4.680)
== END 2024-06-04 08:30 | disposition home or self-care (01) ==
PROVIDERS: PCP Physician Assistant; Visit Provider Internal Medicine
DX: Z00.00 Encounter for general adult medical examination without abnormal findings (principal); Z13.29 Encounter for screening for other suspected endocrine disorder
CPT/HCPCS: 36415; 80053; 80061; 84443; 85025

== ENCOUNTER 2024-08-02 18:46 | Emergency (ER) | payer OTHER, SELFPAY ==
[2024-08-02 18:55] VITALS: BP 167/86; PULSE 86; RESP 28; TEMP 37.3; O2SAT 98
--- NOTE | 2024-08-02 19:37 | ED.URI ---
HPI - URI/Sore Throat General Chief Complaint: Upper Respiratory Infection Stated Complaint: SOB,chest heavy,hard to get deep breath Time Seen by Provider: 08/02/24 19:37 Source: patient, RN notes reviewed and old records reviewed Mode of arrival: ambulatory Limitations: no limitations History of Present Illness HPI Narrative: 33-year-old female to Express Care with complaint of persistent cough. Patient endorses testing positive for COVID 9 days ago. Patient reports treating symptoms home with various [id number] medications with little relief. Patient resting in exam room in no acute distress. Cough present while speaking, however respirations even and nonlabored. Related Data Home Medications Medication Instructions Recorded Confirmed melatonin 10 mg tablet 10 mg PO QHS 04/03/23 06/04/24 Allergies Allergy/AdvReac Type Severity Reaction Status Date / Time Egg Derived AdvReac Mild Unknown Verified 08/02/24 19:58 Review of Systems Review of Systems: All systems reviewed & are unremarkable except as noted in HPI and below Constitutional: Constitutional: Reports no additional constitutional complaints Eyes: Eyes: Reports no additional eye complaints ENT: Reports system reviewed and no additional complaints, except as documented Cardiovascular: Cardiovascular: Reports no additional cardiovascular complaints, Denies chest pain and Denies dyspnea Respiratory: Respiratory: Reports no additional respiratory complaints, Reports cough and Denies dyspnea Musculoskeletal: Musculoskeletal: Reports no additional musculoskeletal complaints Neurologic: Reports system reviewed and no additional complaints, except as documented Psychiatric: Psychiatric: Reports no additional psychiatric complaints PMFSH Past Medical History Medical History Allergies Anxiety Gestational hypertension Missed ab Obesity Surgical History Surgical History History of History of D&C Family History Family History Father Hypertension Heart disease Cerebrovascular accident Mother Depression Breast cancer Sibling Depression Grandparent Diabetes mellitus Gallbladder cancer Depression Social History Social History Years smoked: 5 Smoking status: Former smoker Tobacco type: e-cigarettes/vaping Alcohol intake: current Drinks per week: 2 Substance use: never Lack of Transportation: No Lack of Food: Never True Current Housing: I Have Housing Concerned About Future Housing: No Difficulty Paying Gas/Electric Bills: No Difficulty Paying for Meds: No Currently Unemployed: No Education: Master's Degree or Higher Difficulty w/ Childcare or Family Care: No Living arrangements: with family Spiritual care concerns: No Comments At the time of my signature, I reviewed and agree with the nursing past medical, surgical, social, and family history. There is no relevant family history pertinent to the patient complaint. Exam Const: General: cooperative, no acute distress, alert, ill appearing acutely, tired appearing, uncomfortable and well nourished Nutritional Appearance: well nourished Orientation/consciousness: patient oriented x3 Limitations: no limitations HENMT: Head: normal to inspection Ears: external ears normal Face/Nose/Sinus: Normal external nose present, Normal nares present, normal facial exam, No erythema and No edema Face and sinus: normal facial exam, no erythema and no edema Mouth: Yes Normal oral and palatal mucosa present Eyes: General: appearance normal, both eyes and all related structures Neck: Neck: normal visual inspection, full ROM and no meningeal signs Lymphatic: no lymphadenopathy noted and no lymphedema noted Chest: Chest palpation & inspection: normal inspection of the chest Resp: Effort & Inspection: normal respiratory effort and able to speak in complete sentences Auscultation: crackles on the right in the mid lung barnes Cardio: Jugular venous distension: no JVD Rate: regular rate Rhythm: regular rhythm Back/Spine/Pelvis: Cervical Spine: cervical ROM normal Skin: General skin exam: normal color, no rashes or lesions noted and turgor normal Neuro: General: patient oriented x3, gait normal, moves all extremities and no meningeal signs Speech: normal speech Gait exam (Neuro): Normal gait present Extrem: General: normal to inspection, full ROM and capillary refill normal Psych: Appearance: grossly normal and well kempt Course Course Emergency Course: Some parts of this dictation were generated by voice recognition software and may contain typographical and/or grammatical inaccuracies. Level of Care: Express Care Visit Vital Signs Vital signs: Vital Signs Temperature 37.3 C 08/02/24 18:55 Pulse Rate 86 08/02/24 18:55 Respiratory Rate 28 H 08/02/24 18:55 Blood Pressure 167/86 H 08/02/24 18:55 Pulse Oximetry 98 08/02/24 18:55 Oxygen Delivery Room Air 08/02/24 18:55 Temperature 37.3 C 08/02/24 18:55 Pulse Rate 86 08/02/24 18:55 Respiratory Rate 28 H 08/02/24 18:55 Blood Pressure 167/86 H 08/02/24 18:55 Pulse Oximetry 98 08/02/24 18:55 Oxygen Delivery Room Air 08/02/24 18:55 reviewed MDM - URI/Sore Throat MDM Narrative Medical decision making narrative: 33-year-old female to [facility] Care with complaint of persistent cough. Patient endorses testing positive for COVID 9 days ago. Patient reports treating symptoms home with various [id number] medications with little relief. Patient resting in exam room in no acute distress. Cough present while speaking, however respirations even and nonlabored. On exam, crackles heard at right mid posterior lung.Exam otherwise unremarkable. Conversation with patient regarding clinical diagnosis verses imaging. Patient declined imaging at this time. Patient is sitting comfortably in exam room nontoxic in appearance. Patient appropriate for outpatient treatment and follow-up. Discharge instructions reviewed with patient, as well as provided in writing per nursing staff. The instructions also include specific and strict return/GO TO THE ER as well as f/u information. All questions have been answered, and the patient deny any further questions with discharge and discharge plan. Some parts of this dictation were generated by voice recognition software and may contain typographical and/or grammatical inaccuracies. Differential Diagnosis Differential diagnosis: Likely upper respiratory infection, croup, otitis media, sinusitis, viral infection, bronchitis, influenza and pharyngitis Discharge Plan Discharge Clinical Impression: Pneumonia Patient Disposition: Home, Self-Care Condition: Stable Instructions: Pneumonia (ED) Additional Instructions: -Alternate Tylenol and Motrin per package directions for fever or pain. -Antihistamine medication such as Benadryl at night and Zyrtec/Claritin/Madie during the day can help improve symptoms. -Use Flonase twice a day for 5 days then daily to help reduce the inflammation and dry up your sinuses. -You can also use Sudafed or Mucinex. Be sure to drink plenty of water with these medications at least 8 ounces with every dose and it is important to drink 8 to 10 glasses of water per day. Water is a natural decongestant -Eat and drink things that are easy to swallow, like tea or soup, or popsicles. -Oral rinses such as: Salt water gargles and/or may use topical anesthetic (eg. Chloraseptic spray) or lozenges to relieve dryness or throat pain). -Frequent hand washing or hand provider relations consultant is one of the best ways to prevent spread of infection. -Using a vaporizer or humidifier at night will also help thin secretions and help with coughing up phlegm. -Follow up with primary care provider in 2-3 days if condition is not improving; or seek ER visit if you have trouble breathing, cannot drink enough fluids, have muffled voice, difficulty opening your mouth, or severe swelling. your blood pressure today is 167/86 it is important you follow-up with your primary care provider regarding your blood pressure Prescriptions: New azithromycin 250 mg tablet 250 mg PO DAILY Qty: 6 0RF Rx Instructions: 250 mg orally. Take TWO tablets today, then one tablet daily for 4 days. methylprednisolone [Medrol (Bret)] 4 mg tablets,dose pack See Rx Instructions .ROUTE .COMPLEX Qty: 21 0RF Rx Instructions: per package instructions albuterol sulfate 90 mcg/actuation HFA aerosol inhaler 1 puff inhalation QID PRN (Reason: shortness of breath or wheezing) Qty: 8.5 0RF No Action melatonin 10 mg tablet 10 mg PO QHS buspirone 7.5 mg tablet 7.5 mg PO BID Qty: 60 3RF Follow-up/Referrals: Jeff Koo DO [Primary Care Provider] - Stand Alone Forms: Work/School Release IP
== END 2024-08-02 19:55 | disposition home or self-care (01) ==
PROVIDERS: Emergency Provider Nurse Practitioner Family; PCP Internal Medicine
DX: J18.9 Pneumonia, unspecified organism (principal); Z87.891 Personal history of nicotine dependence; E66.9 Obesity, unspecified; Z68.32 Body mass index [BMI] 32.0-32.9, adult
CPT/HCPCS: 99213; G0463

== ENCOUNTER 2025-01-06 09:53 | Emergency (ER) | payer OTHER, SELFPAY ==
[2025-01-06 10:04] VITALS: BP 147/63; PULSE 90; RESP 20; TEMP 36.7; O2SAT 96
--- NOTE | 2025-01-06 10:25 | ED_ITS ---
HPI - URI/Sore Throat General Chief Complaint: Upper Respiratory Infection Stated Complaint: Cough/No Taste or Smell/Body Aches Time Seen by Provider: 01/06/25 10:26 Source: patient Mode of arrival: ambulatory Limitations: no limitations History of Present Illness HPI Narrative: 34-year-old female presents with complaint of cough, congestion, fatigue for the past 4 days. Taking njil-lfx-eujepgm cough medication with little relief of symptoms. States that she heard crackles In lungs yesterday. History of COVID and pneumonia approximately 2 months ago. No chest pain or shortness of breath at this time. Patient vapes daily. Patient leaving for [employer] next week and concerned she may have pneumonia. All systems reviewed and negative except as noted above. Related Data Allergies Allergy/AdvReac Type Severity Reaction Status Date / Time Egg Derived AdvReac Intermediate Gastrointestinal Verified 01/06/25 10:15 Upset Review of Systems Review of Systems: CONSTITUTIONAL: Denies fever, chills, or sweats. EYES: Denies visual changes, redness, or discharge. ENT: Reports rhinorrhea, congestion. Denies sore throat, or otalgia. CARDIOVASCULAR: Denies chest pain, palpitations, or edema. RESPIRATORY: reports cough. Denies dyspnea. GASTROINTESTINAL: Denies abdominal pain, nausea, vomiting, or diarrhea. GENITOURINARY: Denies dysuria or hematuria. SKIN: Denies rash or itching. MUSCULOSKELETAL: Denies back pain, joint pain, or myalgia. NEUROLOGIC: Denies headache, numbness, or weakness. PSYCHIATRIC: Denies anxiety or depression. All other systems reviewed are negative, except as documented in HPI. [facility] Past Medical History Medical History Allergies Gestational hypertension Anxiety Missed ab Obesity Surgical History Surgical History History of D&C History of Family History Family History (Updated 11/05/24 @ 15:06 by TRACY Carrero) Father Hypertension Heart disease Cerebrovascular accident Mother Depression Breast cancer Sibling Depression Grandparent Diabetes mellitus Gallbladder cancer Depression Social History Social History (Updated 11/05/24 @ 15:07 by TRACY Carrero) Years smoked: 5 Smoking status: Former smoker Tobacco type: e-cigarettes/vaping Second hand tobacco smoke exposure: No Alcohol intake: current Drinks per week: 2 Substance use: never Substance use type: does not use Do You Feel Safe in your Home?: Yes Lack of Transportation: No Lack of Food: Never True Current Housing: I Have Housing Concerned About Future Housing: No Difficulty Paying Gas/Electric Bills: No Difficulty Paying for Meds: No Currently Unemployed: No Education: Master's Degree or Higher Difficulty w/ Childcare or Family Care: No Living arrangements: with family Occupation/Education: occupation Additional occupation/education comments: Post nurse Gender identity (if verbalized by the patient): Female Spiritual care concerns: No Comments At time of signature, agree with nursing past medical, surgical, social and family history. There is no relevant family history pertinent to the presenting complaint. Exam Narrative: GENERAL: This is a well-nourished, well-developed patient, in no apparent distress. HEAD: normocephalic, atraumatic. EYES: PERRL. Sclera clear/white. Vision is grossly intact. EARS: External ears normal, auditory canals clear and without drainage, TMs normal without perforation. Hearing grossly intact. NOSE: External nose normal with clear nasal drainage THROAT: Mucous membranes moist, clear postnasal drainage. No significant erythema, swelling or exudates. NECK: Neck supple, non-tender without lymphadenopathy, masses or thyromegaly. CARDIOVASCULAR: Regular rate and rhythm without murmurs, gallops, or rubs. RESPIRATORY: Clear to auscultation. Breath sounds equal bilaterally. No wheezes, rales, or rhonchi. SKIN: warm, Dry, intact with no suspicious lesions or rash, good texture and turgor. NEURO: awake, alert, and oriented to person, place and time. There were no obvious focal neurologic abnormalities. EXTREMITIES: No joint tenderness, effusion, or edema noted. Course Course Level of Care: Express Care Visit Vital Signs Vital signs: Vital Signs Temperature 36.7 C 01/06/25 10:04 Pulse Rate 90 01/06/25 10:04 Respiratory Rate 20 01/06/25 10:04 Blood Pressure 147/63 H 01/06/25 10:04 Pulse Oximetry 96 01/06/25 10:04 Oxygen Delivery Room Air 01/06/25 10:04 Temperature 36.7 C 01/06/25 10:04 Pulse Rate 90 01/06/25 10:04 Respiratory Rate 20 01/06/25 10:04 Blood Pressure 147/63 H 01/06/25 10:04 Pulse Oximetry 96 01/06/25 10:04 Oxygen Delivery Room Air 01/06/25 10:04 Reviewed MDM - URI/Sore Throat MDM Narrative Medical decision making narrative: negative COVID and influenza. Patient is well-appearing, nontoxic. Lungs clear to auscultation. No respiratory distress noted. Patient offered chest x- ray due to her being concerned for pneumonia and she did not feel was necessary. Recommend she follow-up with her primary care physician if symptoms are not improving. Please be advised this is a medical document. It is intended for [id number] communication. It is written in medical language and may contain unfamiliar abbreviations or verbiage. Medical documents are intended to carry relevant information, facts as evident, and the clinical opinion of the practitioner at the time of the encounter. This report may have been done utilizing a voice recognition system. Attempts have been made to correct errors. However, there may be uncorrected grammatical, spelling, and recognition errors present. The file time of this note does not necessarily represent the time of service. Differential Diagnosis Differential diagnosis: Likely upper respiratory infection, sinusitis, viral infection, bronchitis and influenza Lab Data Labs: Lab Results 01/06/25 Range/Units 10:10 POC Influenza A Ag Negative (Negative) POC Influenza B Ag Negative (Negative) POC SARS CoV-2 Ag Negative (Negative) Discharge Plan Discharge Clinical Impression: Viral upper respiratory tract infection with cough Patient Disposition: Home Condition: Stable Instructions: Upper Respiratory Infection (ED) Additional Instructions: your COVID and influenza test was negative today. Your symptoms are viral and may last 10-14 days. Purchase [id number] pseudoephedrine and take as directed on packaging. This medication is found behind the pharmacy counter. Take medications as prescribed. Drink at least 64 oz water a day. Place cool mist humidifier in bedroom where you sleep. Follow-up with your doctor if symptoms are not improving. Patient Language: Lao Prescriptions: New benzonatate 200 mg capsule 200 mg PO TID PRN (Reason: cough) Qty: 20 0RF prednisone 20 mg tablet 40 mg PO DAILY 5 Days Qty: 10 0RF No Action albuterol sulfate 90 mcg/actuation HFA aerosol inhaler 2 puff inhalation QID PRN (Reason: shortness of breath or wheezing) Qty: 8.5 1RF Follow-up/Referrals: Jeff Koo DO [Primary Care Provider] - Time of Disposition: 10:33
[2025-01-06 10:31] LABS: EDCOVIDSCREEN Negative (Negative)
[2025-01-06 10:32] LABS: EDINFLUASCREEN Negative (Negative); EDINFLUBSCREEN Negative (Negative)
--- OUTSIDE RECORDS SUMMARY | 2025-01-06 10:47 | XMS_ITS | Referral Summary ---
Author Organization [facility] Address [address] [place] [address] Care Team Providers Care Aircraft Mechanic Name Role Phone Vega Stewart Primary Care Provider Allergies No known active allergies Medications venlafaxine 75 mg tablet extended release 24hr 24 hr tablet Take 1 tablet (75 mg total) by mouth daily with breakfast. 90 tablet 3 10/12/2018 Active HYDROcodone-raman taminophen (NORCO) 5-325 mg per tabletIndicatio ns:Pain Take 1-2 tablets by mouth every 4 (four) hours as needed for pain Do not exceed 8 tablets/day. 20 tablet 08/23/2023 Active Active Problems Problem Noted Date Diagnosed Date Obesity (BMI 30-39.9) 07/27/2018 Weight gain 07/27/2018 Assessment & Plan (07/27/2018 9:38 AM CDT): Encourage patient to complete some labs office today including TSH and BMP to determine there is any other etiologies which could be causing her progress weight gain. Previously tolerated phentermine which I did provide her with a script in office today pending results of testing for her to the initiate medication. Side effects discussed with patient, follow-up in a month in order for us to the assess she is doing on medication/dosage, recheck weight gain as well as diet exercise regimen discussion. I do not believe that we need to complete a 2D echocardiogram due to lack of audible murmurs or symptoms currently or while previously taking medication. Mixed anxiety depressive disorder 12/15/2015 Overview (12/29/2016): Depression with anxiety Resolved Problems Problem Noted Date Diagnosed Date Resolved Date Hand, foot and mouth disease 04/23/2018 07/27/2018 Assessment & Plan (04/23/2018 10:00 AM CDT): Asymptomatic at this time without any concerns regarding worsening or new lesions, fevers and pharyngitis is also abated. Work note given for to return to work considering she has been afebrile for the last 4-5 days as of today as requested by patient certainly will follow-up with her with any additional complaints or worsening in symptoms. I did advise her that the rash appears to be peeling which indicates that it is on the last stage of the herpangina virus, in likely no concern regarding contagious at this point in the viral illness Acute pharyngitis due to oth er specified organisms 04/16/2018 04/23/2018 Assessment & Plan (04/16/2018 2:03 PM CDT): Appears refer ordered at this time she does demonstrate quite a bit tonsillitis in the right tonsil will go ahead and send off for strep due to her high fevers at home and follow up with her in regard any persistent fevers over 101.4 over the next 24 hr, results of throat culture, and certainly need for any additional management if symptoms in general persisting beyond 3 days. Rotation antipyretics, salt water gargles, throat lozenges, increasing fluid intake all advised and again will touch base regarding results of throat culture need for additional management Need for diphtheria-tetanus- pertussis (Tdap) vaccine 12/13/2017 07/27/2018 Assessment & Plan (12/13/2017 8:52 AM CDT): Updated patient on tetanus vaccination considering possibility of acute spider bite causing infection. Adult BMI 32.0-32.9 kg/sq m 12/13/2017 07/27/2018 Assessment & Plan (12/13/2017 8:52 AM CDT): Recommended patient to continue to increase heart healthy diet with adequate fruits, vegetables, and plenty of water along with mild-moderate daily exercise as tolerated. Cellulitis of left lower extremity 12/07/2017 07/27/2018 Assessment & Plan (12/13/2017 8:53 AM CDT): Much improved since last office visit 2 days ago after having started Bactrim. I recommended patient to continue with Bactrim as previously prescribed completing a full 10 day course she can certainly stop the Augmentin after today, after 7 days of antibiotics, as I believe this is probably upsetting her stomach the most. I can continue to recommend probiotics as well. Continue to allow the areas to drain and certainly follow up with us any concern regarding worsening in symptoms/infection to follow up in office for additional evaluation. Assessment & Plan (12/11/2017 2:20 PM CDT): Patient seen respond very well Augmentin however I did recommend her continuing Augmentin as previously prescribed. Additionally, prescribing Bactrim DS 1 tab twice daily for full 10 day course an effort to prevent any GI upset associated with dual antibiotics I recommended probiotics [id number]. Close monitoring outpatient, 2D follow up in our office and Dr. Schaffer was pulled into the room as well to take a look at her leg just to see what he thought per mom's request and he gave her the option of either going to ER or trying another antibiotic and certainly ER at the 2 day follow-up or in the interim if there is any fevers, chills, streaking, increasing pain or redness. Furthermore, or giving her the next 2 days off work in order to rest and elevate her left leg. Assessment & Plan (12/07/2017 11:40 AM CDT): Recommended continuing on high-dose Augmentin twice daily for the 10 day course keeping a close eye out for any fevers which might come on after being on antibiotics for 24 hr, to which I advised her to call us, follow-up on Monday to check on condition, mupirocin cream was prescribed to apply twice daily along with cleansing of Dial soap trying not to scratch her muscle the area and allowing for drainage with a warm clean towel as well. Wound culture was also obtained which will follow up with her on indicating need to change our management recommended today. Will follow- up on Tree or sooner as needed Influenza A 09/13/2017 07/27/2018 Assessment & Plan (09/13/2017 4:39 PM SODA FOUNTAIN OPERATOR): Influenza A + and influenza B -. Patient will begin Tamiflu as directed. Patient was educated on Tamiflu. Patient understands Tamiflu will shorten the duration of flu symptoms by 1-2 days. Patient understands he/she will get better regardless of Tamiflu use. If this prescription is too costly at the pharmacy they may elect to forego prescription. Humidification, fluids, and rest were encouraged. Patient may take Tylenol or ibuprofen as needed for fever, chills, and body aches. We discussed symptoms of, duration of, and treatment of viral illness. Symptom should run their course within 5-7 days. We discussed potential contagiousness to others and ways to prevent spread. Patient has been encouraged to contact the office for follow-up with any change in, worsening, or non improvement in condition. We discussed signs and symptoms of secondary infection as well. Cough with fever 09/13/2017 07/27/2018 Assessment & Plan (09/13/2017 4:40 PM SODA FOUNTAIN OPERATOR): Influenza a positive and influenza B negative. Dizziness 12/28/2015 07/27/2018 Overview (12/29/2016): Dizziness No pathologic diagnosis 01/17/201310/2017 Overview (12/30/2016): No diagnosis Immunizations Immunization Administration Dates Next Due DTP 10/16/1996, 3,04/28/1992,02/23,1991 HPV, Quadrivalent 01/29/2009,2008,06/23/20 08 Hep B Vaccine 05/01/1998 Hep B, Adolescent or Pediatric 11/18/1997,1997 Hib (HbOC) 01/22/1993, 2,02/24/1992,12/22 Influenza, Quadrivalent, Spl it, Preservative Free, Intramuscular 08/22/2018 Influenza, Split 09/08/2011 Influenza, Trivalent, IM (MDV) 07/04/2013 Influenza, Unspecified 06/25/2017,06/25/2016 MMR 10/16/1996,01/22/1993 OPV 10/16/1996, 3,02/24/1992,12/22 PPD TEST 10/10/2018 Td, adsorbed 04/28/2005 Tdap 12/13/2017,08/16/2011 Social History Tobacco Use Types Packs/Day Years Used Date Smoking Tobacco: Light Smoker Smokeless Tobacco: Never Alcohol Use Standard Drinks/Week Comments Yes 0 (1 standard drink = 0.6 oz pur e alcohol) PHQ-2 Answer Date Recorded PHQ-2 Score 0 05/18/2019 Personal Safety Answer Date Recorded Have you ever been in or are you currently in a harmful physical or emotional relationship or is someone making you feel afraid or unsafe? Denies 08/23/2023 Comments No Sex and Gender Information Value Date Recorded Sex Assigned at Not on file Legal Sex Female 11:56 PM SODA FOUNTAIN OPERATOR Gender Identity Not on file Sexual Orientation Not on file Last Filed Vital Signs Vital Sign Reading Time Taken Comments Blood Pressure 164/96 08/23/2023 6:19 PM SODA FOUNTAIN OPERATOR Pulse 99 08/23/2023 3:45 PM SODA FOUNTAIN OPERATOR Temperature 36.9 C (98.5 F) 07/27/2018 9:09 AM CDT Respiratory Rate 18 08/23/2023 6:19 PM SODA FOUNTAIN OPERATOR Oxygen Saturation 98% 08/23/2023 6:19 PM SODA FOUNTAIN OPERATOR Inhaled Oxygen Concentration - - Weight 102.1 kg (225 lb) 11/22/2018 3:36 PM SODA FOUNTAIN OPERATOR Height 175.3 cm (5' 9 ) 11/22/2018 3:36 PM SODA FOUNTAIN OPERATOR Body Mass Index 33.23 11/22/2018 3:36 PM SODA FOUNTAIN OPERATOR Plan of Treatment Not on file Procedures Procedure Name Priority Date/Time Associated Diagnosis Comments PAP SMEAR WITH HPV Routine 11/09/2017 from Last 3 Months or Most Recently Relevant to Health Maintenance Results * PAP SMEAR WITH HPV (11/09/2017) Pap smear Normal Historical Provider MD HEALTH MAINTENANCE Final Result from Last 3 Months or Most Recently Relevant to Health Maintenance Insurance [facility] CLAIMS OFFICE [facility] CORE Care Teams Aircraft Mechanic Relationship Specialty Start Date End Date Vega Stewart PA [address] [facility] [address] [place] [address] PCP - General Physician Scallop Cutter Machine 08/23/23
--- OUTSIDE RECORDS SUMMARY | 2025-01-06 10:47 | XMS_ITS | Clinical Summary ---
Author Organization [facility] Address [address] [place] [address] Care Team Providers Care Welder Gas Tungsten Arc Name Role Phone Vega Stewart Primary Care [...] associated with dual antibiotics I recommended probiotics [id number]. Close monitoring outpatient, 2D follow up in [...] 07/27/2018 Assessment & Plan (09/13/2017 4:39 PM RECONCILEMENT CLERK): Influenza A + and influenza B -. [...] 07/27/2018 Assessment & Plan (09/13/2017 4:40 PM RECONCILEMENT CLERK): Influenza a positive and influenza B negative. [...] TEST 10/10/2018 Td, adsorbed 04/28/2005 Tdap 12/13/2017,08/16/2011 Medical History Medical History Date Comments Hx Other Medical Dermatitis of l egs Hx Other Medical Menometrorrhagi a History of multiple allergies Al lergies Hx Other Medical CNC LASER OPERATOR Family History Medical History Relation Name Comments Brain Aneurysm Father Brain Aneurys m; Hypertension Father Hypertension; D eceased Other Father Idiopathic Mukul estive Cardiomy; /Heart Surgery; Infection in heart causing damage Diabetes Maternal Grandmother Diabete s mellitus; Heart disease Maternal Grandmother Heart disease; Osteoporosis Maternal Grandmother Osteopo rosis; Breast cancer Mother Cancer, breast ; Endometriosis Mother Endometriosis; Relation Name Status Comments Father Alive Maternal Grandmother Mother Social History Tobacco Use Types Packs/Day Years [...] on file Legal Sex Female 11:56 PM RECONCILEMENT CLERK Gender Identity Not on file Sexual Orientation Not on file Obstetrics History Para Term AB IAB SAB Ectopic Multiple Livin g Live Births 0 0 0 0 0 0 0 0 0 0 0 Last Filed Vital Signs Vital Sign Reading Time Taken Comments Blood Pressure 164/96 08/23/2023 6:19 PM RECONCILEMENT CLERK Pulse 99 08/23/2023 3:45 PM RECONCILEMENT CLERK Temperature 36.9 C (98.5 F) 07/27/2018 9:09 AM CDT Respiratory Rate 18 08/23/2023 6:19 PM RECONCILEMENT CLERK Oxygen Saturation 98% 08/23/2023 6:19 PM RECONCILEMENT CLERK Inhaled Oxygen Concentration - - Weight 102.1 kg (225 lb) 11/22/2018 3:36 PM RECONCILEMENT CLERK Height 175.3 cm (5' 9 ) 11/22/2018 3:36 PM RECONCILEMENT CLERK Body Mass Index 33.23 11/22/2018 3:36 PM RECONCILEMENT CLERK Plan of Treatment Health Maintenance Due Date Last Done Comments Hepatitis C Screening 1991 Varicella Vaccines (1 of 2 - 13+ 2-dose series) 2004 Pneumococcal vaccine <65 (1 of 2 - PCV) 2010 Cervical Cancer Screening 11/09/2018 11/09/2017 Depression Screening 10/12/2019 10/12/2018, 07/27/2018, 04/23/2018, Additional history exists Regular Well Visit/Exam 18-64 11/22/2019 11/22/2018, 10/12/2018 Covid-19 Vaccine (2023-2 5 season) 2024 07/09/2021, 10/05/2020, 09/14/2020 Influenza Vaccine (#1) 2024 , 07/04/2019, 08/22/2018, Additional history exists DTaP/Tdap/Td Vaccine (9 - Td or Tdap) 01/11/2033 01/11/2023, 12/13/2017, 08/16/2011, Additional history exists Hepatitis B Screening Completed 05/01/1998 , 11/18/1997, 10/13/1997 HPV Vaccines Completed 01/29/2009, 09/26, 06/23/2008 Procedures Procedure Name Priority Date/Time Associated Diagnosis Comments PAP SMEAR WITH HPV Routine 11/09/2017 from Last 3 Months or Most Recently Relevant to Health Maintenance Results * PAP SMEAR WITH HPV (11/09/2017) Pap smear Normal us Historical Provider HEALTH MAINTENANCE Final Result from Last 3 Months or Most Recently Relevant to Health Maintenance Insurance [employer] CLAIMS OFFICE [facility] CORE Care Teams Welder Gas Tungsten Arc Relationship Specialty Start Date End Date Vega Stewart PA [address] [facility] [address] [place] [address] PCP - General Physician Director Of Golf 08/23/23
--- OUTSIDE RECORDS SUMMARY | 2025-01-06 10:47 | XMS_ITS | Encounter Summary ---
Author Organization [facility] Address [address] [place] [address] Phone Care Team Providers Care Bulk Delivery Driver Name Role Phone Jeff Schaffer MD Primary Care Provider Vega Stewart Primary Care Provider Encounter Details Date Type Department Care Team (Late st Contact Info) Description 12/07/2017 Orders Only [facility] ProviderAmos MD [address] [place] [id number] Social History Tobacco Use Types Packs/Day Years Used Date Smoking Tobacco: Never Smokeless Tobacco: Never Alcohol Use Standard Drinks/Week Comments Yes 0 (1 standard drink = 0.6 oz pur e alcohol) Comments Unknown Sex and Gender Information Value Date Recorded Sex Assigned at Not on file Legal Sex Female 11:56 PM FULL SERVICE VENDING DRIVER Gender Identity Not on file Sexual Orientation Not on file documented as of this encounter Plan of Treatment Not on file documented as of this encounter Procedures Procedure Name Priority Date/Time Associated Diagnosis Comments DISCHARGE LABORATORY CUMULATIVE REPORT 12/07/2017 12:00 AM CDT documented in this encounter Results * DISCHARGE LABORATORY CUMULATIVE REPORT (12/07/2017 12:00 AM CDT) Narrative 12/07/2017 12:00 AM CDT Ordered by an unspecified provider. Historical Provider LAB BLOOD ORDERABLES Sophia l Result documented in this encounter Visit Diagnoses Not on filedocumented in this encounter Additional Health Concerns Infection Onset Date Last Indicated Resolved Time MRSA Comment:L leg 12/07/17 12/07/2017 12/07/2017 05/12/2021 5:00 AM CDT documented as of this encounter Care Teams Bulk Delivery Driver Relationship Specialty Start Date End Date Jeff Schaffer MD PCP - General 09/30/10 08/22/23 Vega Stewart PA [address] [place] [address] PCP - General Physician Staff Nuclear Medicine Technologist 08/23/23 documented as of this encounter
--- OUTSIDE RECORDS SUMMARY | 2025-01-06 10:47 | XMS_ITS | Encounter Summary ---
Author Organization [facility] Address [address] [place] [address] Phone Care Team Providers Care Land Commissioner Name Role Phone Jeff Schaffer MD Primary Care Provider Vega Stewart Primary Care Provider Encounter Details Date Type Department Care Team (Late st Contact Info) Description 11/09/2017 Orders Only [facility] ProviderAmos MD [address] [place] [id number] Social History Tobacco Use Types Packs/Day Years Used Date Smoking Tobacco: Never Smokeless Tobacco: Never Alcohol Use Standard Drinks/Week Comments Yes 0 (1 standard drink = 0.6 oz pur e alcohol) Comments Unknown Sex and Gender Information Value Date Recorded Sex Assigned at Not on file Legal Sex Female 11:56 PM AGRICULTURAL PURCHASING AGENT Gender Identity Not on file Sexual Orientation Not on file documented as of this encounter Plan of Treatment Not on file documented as of this encounter Procedures Procedure Name Priority Date/Time Associated Diagnosis Comments CYTOLOGY 11/09/2017 12:00 AM AGRICULTURAL PURCHASING AGENT documented in this encounter Results * CYTOLOGY (11/09/2017 12:00 AM AGRICULTURAL PURCHASING AGENT) Narrative 11/09/2017 12:00 AM AGRICULTURAL PURCHASING AGENT Ordered by an unspecified provider. Historical Provider LAB CYTOLOGY ORDERABLES F inal Result documented in this encounter Visit Diagnoses Not on filedocumented in this encounter Additional Health Concerns Infection Onset Date Last Indicated Resolved Time MRSA Comment:L leg 12/07/17 12/07/2017 12/07/2017 05/12/2021 5:00 AM CDT documented as of this encounter Care Teams Land Commissioner Relationship Specialty Start Date End Date Jeff Schaffer MD PCP - General 09/30/10 08/22/23 Vega Stewart PA [address] [address] PCP - General Physician Community Relations Director 08/23/23 documented as of this encounter
== END 2025-01-06 10:40 | disposition home or self-care (01) ==
PROVIDERS: Emergency Provider Nurse Practitioner Family; PCP Internal Medicine
DX: J06.9 Acute upper respiratory infection, unspecified (principal); R05.9 Cough, unspecified; Z87.891 Personal history of nicotine dependence; Z11.52 Encounter for screening for COVID-19
CPT/HCPCS: 87426; 87804; 99213; G0463

== ENCOUNTER 2025-05-30 14:01 | Outpatient (CLI) | payer OTHER, SELFPAY ==
--- OUTSIDE RECORDS SUMMARY | 2025-05-30 14:10 | XMS_ITS | Encounter Summary ---
Author Organization [facility] Address [address] [place] [address] Phone Care Team Providers Care Manager Heart Name Role Phone Jeff Schaffer MD Primary Care Provider Vega Stewart Primary Care Provider Encounter Details Date Type Department Care Team (Late st Contact Info) Description 11/09/2017 Orders Only [facility] ProviderAmos MD [address] [place] [id number] Social History Tobacco Use Types Packs/Day Years Used Date Smoking Tobacco: Never Smokeless Tobacco: Never Alcohol Use Standard Drinks/Week Comments Yes 0 (1 standard drink = 0.6 oz pur e alcohol) Comments Unknown Sex and Gender Information Value Date Recorded Sex Assigned at Not on file Legal Sex Female 11:56 PM PUMPER GAUGER Gender Identity Not on file Sexual Orientation Not on file documented as of this encounter Plan of Treatment Not on file documented as of this encounter Procedures Procedure Name Priority Date/Time Associated Diagnosis Comments CYTOLOGY 11/09/2017 12:00 AM PUMPER GAUGER documented in this encounter Results * CYTOLOGY (11/09/2017 12:00 AM PUMPER GAUGER) Narrative 11/09/2017 12:00 AM PUMPER GAUGER Ordered by an unspecified provider. Historical Provider LAB CYTOLOGY ORDERABLES F inal Result documented in this encounter Visit Diagnoses Not on filedocumented in this encounter Additional Health Concerns Infection Onset Date Last Indicated Resolved Time MRSA Comment:L leg 12/07/17 12/07/2017 12/07/2017 05/12/2021 5:00 AM CDT documented as of this encounter Care Teams Manager Heart Relationship Specialty Start Date End Date Jeff Schaffer MD PCP - General 09/30/10 08/22/23 Vega Stewart PA [address] [address] PCP - General Physician Warehouse Logistics Manager 08/23/23 documented as of this encounter
--- OUTSIDE RECORDS SUMMARY | 2025-05-30 14:10 | XMS_ITS | Encounter Summary ---
Author Organization [facility] Address [address] [place] [address] Phone Care Team Providers Care Healthcare Economics Manager Name Role Phone Jeff Schaffer MD Primary Care Provider Vega Stewart Primary Care Provider Encounter Details Date Type Department Care Team (Late st Contact Info) Description 12/07/2017 Orders Only [facility] ProviderAmos MD [address] [place] [id number] Social History Tobacco Use Types Packs/Day Years Used Date Smoking Tobacco: Never Smokeless Tobacco: Never Alcohol Use Standard Drinks/Week Comments Yes 0 (1 standard drink = 0.6 oz pur e alcohol) Comments Unknown Sex and Gender Information Value Date Recorded Sex Assigned at Not on file Legal Sex Female 11:56 PM JOB HONER Gender Identity Not on file Sexual Orientation [...] documented as of this encounter Care Teams Healthcare Economics Manager Relationship Specialty Start Date End Date Jeff Schaffer MD PCP - General 09/30/10 08/22/23 Vega Stewart PA [address] [place] [address] PCP - General Physician Assisted Living Manager 08/23/23 documented as of this encounter
--- OUTSIDE RECORDS SUMMARY | 2025-05-30 14:10 | XMS_ITS | Clinical Summary ---
Author Organization [facility] Address [address] [place] [address] Care Team Providers Care Auricular Therapist Name Role Phone Vega Stewart Primary Care [...] associated with dual antibiotics I recommended probiotics [id number]. Close monitoring outpatient, 2D follow up in [...] 07/27/2018 Assessment & Plan (09/13/2017 4:39 PM FERN GATHERER): Influenza A + and influenza B -. [...] 07/27/2018 Assessment & Plan (09/13/2017 4:40 PM FERN GATHERER): Influenza a positive and influenza B negative. [...] multiple allergies Al lergies Hx Other Medical OTR TRUCK DRIVER Family History Medical History Relation Name Comments [...] on file Legal Sex Female 11:56 PM FERN GATHERER Gender Identity Not on file Sexual Orientation Not on file Obstetrics History Para Term AB IAB SAB Ectopic Multiple Livin g Live Births 0 0 0 0 0 0 0 0 0 0 0 Last Filed Vital Signs Vital Sign Reading Time Taken Comments Blood Pressure 164/96 08/23/2023 6:19 PM FERN GATHERER Pulse 99 08/23/2023 3:45 PM FERN GATHERER Temperature 36.9 C (98.5 F) 07/27/2018 9:09 AM CDT Respiratory Rate 18 08/23/2023 6:19 PM FERN GATHERER Oxygen Saturation 98% 08/23/2023 6:19 PM FERN GATHERER Inhaled Oxygen Concentration - - Weight 102.1 kg (225 lb) 11/22/2018 3:36 PM FERN GATHERER Height 175.3 cm (5' 9) 11/22/2018 3:36 PM FERN GATHERER Body Mass Index 33.23 11/22/2018 3:36 PM FERN GATHERER Plan of Treatment Health Maintenance Due Date [...] 2024 07/09/2021, 10/05/2020, 09/14/2020 Influenza Vaccine (#1) 2025 , 07/04/2019, 08/22/2018, Additional history exists DTaP/Tdap/Td [...] to Health Maintenance Insurance [employer] [facility] CORE Care Teams Auricular Therapist Relationship Specialty Start Date End Date Vega Stewart PA [address] [facility] [address] [place] [address] PCP - General Physician Senior Electrical Designer 08/23/23
[2025-05-30 14:45] LABS: Anion Gap 8 mmol/L (4-12); Blood Urea Nitrogen 14 mg/dL (7-17); Calcium 9.1 mg/dL (8.4-10.2); Carbon Dioxide 25 mmol/L (22-30); Chloride 103 mmol/L (98-107); Estimated Glomerular Filt Rate > 60; Glucose 106 mg/dL (65-110); Potassium 4.2 mmol/L (3.4-5.0); Sodium 136 mmol/L (137-145)
[2025-05-30 14:52] LABS: Hemoglobin A1C 5.2 % (<5.7)
[2025-05-30 15:21] LABS: Thyroid Stimulating Hormone 0.866 uIU/mL (0.465-4.680)
== END 2025-05-30 14:02 | disposition home or self-care (01) ==
LOC: ANHLAB 14:02
PROVIDERS: PCP Internal Medicine; Visit Provider Internal Medicine
DX: Z00.00 Encounter for general adult medical examination without abnormal findings (principal); E66.9 Obesity, unspecified; R73.9 Hyperglycemia, unspecified
CPT/HCPCS: 36415; 80048; 83036; 84443